=== PATIENT | female | born 1970 | race Caucasian/White ===

== ENCOUNTER 2020-11-03 14:53 | Emergency (ER) | payer BC ==
[~2020-11-03] VITALS: Ht 160 cm; Wt 49.3 kg
[2020-11-03 15:25] VITALS: BP 155/101
[2020-11-03] MEDS ORDERED: CEPH250T PO (17:01)
== END 2020-11-03 17:18 | disposition home or self-care (01) ==
LOC: ER 14:53
DX: I80.02 Phlebitis and thrombophlebitis of superficial vessels of left lower extremity (principal); M25.562 Pain in left knee; Z79.2 Long term (current) use of antibiotics
CPT/HCPCS: 73564; 93971; 99284

== ENCOUNTER 2025-05-01 05:40 | Day surgery (SDC) | payer BC ==
[2025-04-26 15:46] LABS: MEAN PLATELET VOLUME 7.3 FL (7.4-10.4); PRE OP HEMATOCRIT 43.5 % (35.0-45.0); PRE OP HEMOGLOBIN 14.2 g/dL (12.0-16.0); PRE OP PLATELET COUNT 282 X10'3 (140-440); PRE OP WHITE BLOOD COUNT 6.0 10'3 (4.8-10.8); RED CELL DISTRIBUTION WIDTH 13.8 % (11.5-14.5)
--- NOTE | 2025-04-26 15:48 | ELECTROCARDIOGRAPH REPORT ---
[facility] Test Date: 2025-04-26 Test Time: 15:46:48 Pat Name: MARISSA YARBROUGH Department: [facility]-PRE-OP Patient ID: [id number] Room: Gender: F Celery Tier: : 1970 Requested By: LEDA HILL Order Number: [id number] Reading MD: Dr. EMMANUEL Hayes Measurements Intervals [place] Rate: 66 P: 73 [place]: 175 QRS: 19 QRSD: 94 T: 62 QT: 390 QTc: 409 Interpretive Statements Sinus rhythm Minimal ST elevation, anterior leads Electronically Signed On 04-26-2025 16:49:[address] EMMANUEL Hayes Please click the below link to view image of tracing.
[2025-04-26 16:07] LABS: CREATININE 0.94 MG/DL (0.40-0.90); PRE OP ALT 31 U/L (30-65); PRE OP ANION GAP 5 (8-16); PRE OP AST 16 U/L (10-37); PRE OP BILIRUB, TOTAL 0.2 MG/DL (0.0-1.0); PRE OP GLUCOSE 99 MG/DL (70-104); PRE OP POTASSIUM 4.0 MMOL/L (3.4-5.1); PRE OP SODIUM 140 MMOL/L (135-145); TOTAL CARBON DIOXIDE 30.0 MMOL/L (24-32); eGFR 62 ML/MIN
[2025-05-01] VITALS (11 sets, daily range): BP systolic 117–133; BP diastolic 71–81; PULSE 69–94; RESP 10–18; TEMP 98.4; O2SAT 96–99
[~2025-05-01] VITALS: Ht 162.6 cm; Wt 63.5 kg
[~2025-05-01 05:40] MED LIST: ACET600C PO; ASPI-1071 PO; BUPR300T53 PO; GLUC1TAB75 PO; LINA145C PO; LISD40TA PO; MAGN400C PO; OLIV500C PO; POMEGRANITE PO; RIZA-5 PO; SOYB50CA PO; TEST2.5G5 TD; TURM500C4 PO; VITA-321 PO; [UNRECOGNIZED DRUG - CODE] PO; [UNRECOGNIZED DRUG - CODE] PO; [UNRECOGNIZED DRUG - CODE] PO; [UNRECOGNIZED DRUG - CODE] PO; [UNRECOGNIZED DRUG - CODE] PO; [UNRECOGNIZED DRUG - OTHER] PO
[2025-05-01] MEDS: ceFAZolin 2gm/dext,iso 50mL 50 ML IV ONE (06:29)
[2025-05-01] MEDS: ringers solution, lacted 1,000 ML IV SCH (06:30)
[2025-05-01] MEDS ORDERED: LIDOcaine 1% (10mg/ml)w/preservative inj. 20ml MDV ONE (06:44)
[2025-05-01] MEDS ORDERED: BUPIVAcaine 2.5mg/ml inj 50ml vial (contains preservative) ONE (06:44)
[2025-05-01] MEDS ORDERED: methylene blue (5mg/ml) 50mg/10ml ampul IV ONE (06:45)
[2025-05-01] MEDS ORDERED: BUPIVACAINE liposomal/PF 13.3 MG/ML 10mL vial IM ONE (06:45)
[2025-05-01] MEDS ORDERED: BUPIVAcaine/PF 2.5mg/ml (0.25%) 10ml vial ONE (06:57)
[2025-05-01] MEDS ORDERED: propofol inj 20 ML IV ONE (07:21)
[2025-05-01] MEDS ORDERED: fentaNYL/PF 50MCG/1 ML 2ML syringe ONE ×2 (07:21→08:12)
[2025-05-01] MEDS ORDERED: dexamethasone sod phosphate 4mg/ml inj. ONE (07:21)
[2025-05-01] MEDS ORDERED: ondansetron/PF 4mg/2ml inj ONE (07:22)
[2025-05-01] MEDS ORDERED: labetalol 20mg/4ml (5mg/ml) syringe IV PRN (07:25)
[2025-05-01] MEDS ORDERED: ringers solution, lacted 1,000 ML IV SCH (07:25)
[2025-05-01] MEDS ORDERED: hydrALAZINE 20mg/ml inj. IV PRN (07:25)
[2025-05-01] MEDS ORDERED: ondansetron/PF 4mg/2ml inj IV PRN (07:25)
[2025-05-01] MEDS ORDERED: fentaNYL/PF 50MCG/1 ML 2ML syringe IV PRN ×2 (07:25)
[2025-05-01] MEDS: midazolam 1 mg/ML 2ml injection IV ONE (07:30)
[2025-05-01] MEDS ORDERED: acetaminophen 1,000mg/100ml IV 100 ML IV ONE (07:53)
[2025-05-01] MEDS ORDERED: desflurane 240ml liquid inh. IH ONE (08:07)
--- NOTE | 2025-05-01 09:27 | OPERATIVE REPORT ---
Operative Report Providers to CC CC: LEDA HILL DO ~ Date of Procedure: May 01, 2025 Pre-Operative Diagnosis: Left breast cancer Post-Operative Diagnosis SAME as PRE-Op Procedure Performed 1. Left breast wireless (pintuition) localized lumpectomy 2. Intra-operative ultrasound guidance Surgeon: Dr. Leda Hill [employer] Clerk biomedical instrument technician Anesthesiologist: Jameel Hancock Type of Anesthesia: General Findings: Left breast implant posterior margin visualized during procedure, pend to wishing marker detected on specimen radiograph Complications None Prosthetics\Implants used: None Estimated Blood Loss: Less than 5 mL Specimen Removed: 1. Left breast wire localized lumpectomy, oriented short stitch superior, long suture lateral, double suture deep 2. Posterior margin foreign body Description of Procedure: Bri is a 55-year-old female who was seen and evaluated in the office by myself regarding new diagnosis of left breast cancer. 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 Based on our conversation about the diagnosis and treatment of breast cancer she opted out of the sentinel lymph node biopsy because of her immune deficiency, she potentially may opt out of radiation therapy. We discussed the risks and benefits and alternatives to surgery and breast cancer treatments and the surgery for lumpectomy only was her final decision and the informed consent was obtained. She was seen in the preoperative holding area by myself and the anesthesiologist. The left breast was marked with my initials. She had an IV placed and SCDs to lower extremities. The antibiotics were administered before the cut of surgery. She was taken into the operative suite and placed on the table in supine position with the arms extended. I used the ultrasound to scanned the breast to identify the lesion and the marker at the 3:30 position 7 cm from the nipple. I could also see her implant posteriorly beneath the breast tissue. The pintuition probe was used to identify the signal on the skin. The skin was marked and the patient was prepped and draped in a sterile fashion a time-out was performed and agreed upon. The incision was made in the anti radial fashion approximately 7 cm from the nipple just outside of the marked area. My dissected through the deep dermal layer with the cutting on the cautery. Martinez retractors were placed in the cavity as I dissected around the lowest signal with the guidance of the pintuition probe and I dissected in a circumferential fashion. The specimen was removed from the cavity and oriented with short stitch superior, long suture lateral, double suture deep. The cavity was irrigated copiously. The specimen was placed in the specimen radiograph board and the marker was detected in two views. It appeared to be in adequate position. The tumor is more posterior and I dissected down to the muscle which was overlying the implant there were instances where I could see small portions of the implant because the muscle and capsule was violated. I did reapproximate that area with the ivet Vicryl suture. The cavity was copiously irrigated again hemostasis was achieved with Bovie electrocautery. The skin was closed in two layers. The Stratafix was used to close the skin. The skin was cleansed and the Prineo mesh dressing system was placed over the incision. Sterile dressings were placed over the incision and she tolerated the procedure well. All needle and sponge counts were correct taken to recovery in stable condition. Counts repoted as correct: Yes LEDA HILL DO May 01, 2025 09:27
[2025-05-01] MEDS: morphine 4 MG/ML inj SYRINge IV PRN (09:38)
[2025-05-01] MEDS ORDERED: HYDROcodone/acetaminophen 5mg/325mg tablet PO STA (10:06)
[2025-05-01] MEDS: HYDROcodone/acetaminophen 5mg/325mg tablet PO STA (10:08)
== END 2025-05-01 10:25 | disposition home or self-care (01) ==
LOC: PAS 05:40
PROVIDERS: ATTEND Surgery
DX: C50.412 Malignant neoplasm of upper-outer quadrant of left female breast (principal); G43.909 Migraine, unspecified, not intractable, without status migrainosus; Z87.891 Personal history of nicotine dependence; Z79.82 Long term (current) use of aspirin; Z79.899 Other long term (current) drug therapy; Z90.89 Acquired absence of other organs; Z98.890 Other specified postprocedural states; Z88.8 Allergy status to other drugs, medicaments and biological substances
CPT/HCPCS: 19301; 36415; 76098; 80053; 82948; 85025; 93005; A6258; J0131; J0666; J1100; J2250; J2270; J2405; J2704; J3010; J3490; J7030; J7120; Q9968; Z7506; Z7508; Z7512; A4215; A4618; A6212; A6213; A6253; A6449; A7000